=== PATIENT | female | born 1965 | race Caucasian/White ===

== ENCOUNTER 2020-07-14 21:25 | Inpatient (IN) | payer BC ==
[~2020-07-14] VITALS: Ht 157.5 cm; Wt 115.0 kg
[2020-07-14 22:06] LABS: BASOPHILS ABSOLUTE AUTO 0.02 K/mm3 (0.00-0.23); BASOPHILS PERCENT AUTO 0 % (0-2); EOSINOPHILS ABSOLUTE AUTO 0.07 K/mm3 (0.00-0.68); EOSINOPHILS PERCENT AUTO 1 % (0-6); Hemoglobin 14.6 g/dL (11.5-16.0); IMMATURE GRAN ABSOLUTE AUTO 0.04 K/mm3 (0.00-0.10); IMMATURE GRAN PERCENT AUTO 0 % (0-1); LYMPHOCYTES ABSOLUTE AUTO 1.38 K/mm3 (0.84-5.20); LYMPHOCYTES PERCENT AUTO 11 % (21-46); MONOCYTES ABSOLUTE AUTO 0.77 K/mm3 (0.16-1.47); MONOCYTES PERCENT AUTO 6 % (4-13); Mean Corpuscular HGB 28.9 pg (26.0-34.0); Mean Corpuscular Volume 85 fL (80-100); Mean Platelet Volume 11.1 fL (9.1-12.4); NEUTROPHILS ABSOLUTE AUTO 10.16 K/mm3 (1.96-9.15); NEUTROPHILS PERCENT AUTO 82 % (41-73); Platelet Count 267 K/mm3 (150-400); RDW Coefficient Variation 13.8 % (11.7-14.2); Red Blood Cell Count 5.05 M/mm3 (3.80-5.20); White Blood Cell Count 12.44 K/mm3 (4.00-11.30)
[2020-07-14 22:27] LABS: Alanine Aminotransfer (ALT/SGP 262 U/L (12-78); Albumin, Blood 3.7 g/dL (3.4-5.0); Alk Phos 225 U/L (50-136); Anion Gap 7 mmol/L (6-16); Aspartate Aminotrans (AST/SGOT 180 U/L (12-37); Bilirubin, Total 4.6 mg/dL (0.1-1.0); Blood Urea Nitrogen 11 mg/dL (8-24); Bun/Creatinine Ratio 14.5 (12.0-20.0); CO2, Blood 27 mmol/L (21-32); Chloride, Blood 106 mmol/L (98-108); Creatinine, Blood 0.76 mg/dL (0.40-1.00); Globulin, Blood 3.7 g/dL (2.2-4.0); Glomerular Filtration Rate >60 (60-); Glucose, Blood 158 mg/dL (70-99); Potassium, Blood 3.8 mmol/L (3.5-5.5); Sodium, Blood 140 mmol/L (136-145); Total Protein, Blood 7.4 g/dL (6.4-8.2); Troponin I <0.015 ng/mL (0.000-0.040)
[2020-07-15 04:54] LABS: BASOPHILS ABSOLUTE AUTO 0.01 K/mm3 (0.00-0.23); BASOPHILS PERCENT AUTO 0 % (0-2); EOSINOPHILS ABSOLUTE AUTO 0.01 K/mm3 (0.00-0.68); EOSINOPHILS PERCENT AUTO 0 % (0-6); Hematocrit 40.1 % (33.0-51.0); Hemoglobin 13.4 g/dL (11.5-16.0); IMMATURE GRAN ABSOLUTE AUTO 0.03 K/mm3 (0.00-0.10); IMMATURE GRAN PERCENT AUTO 0 % (0-1); LYMPHOCYTES ABSOLUTE AUTO 0.93 K/mm3 (0.84-5.20); LYMPHOCYTES PERCENT AUTO 10 % (21-46); MONOCYTES ABSOLUTE AUTO 0.46 K/mm3 (0.16-1.47); MONOCYTES PERCENT AUTO 5 % (4-13); Mean Corpuscular HGB 28.9 pg (26.0-34.0); Mean Corpuscular HGB Conc 33.4 g/dL (31.5-36.5); Mean Corpuscular Volume 86 fL (80-100); Mean Platelet Volume 10.9 fL (9.1-12.4); NEUTROPHILS ABSOLUTE AUTO 8.34 K/mm3 (1.96-9.15); NEUTROPHILS PERCENT AUTO 85 % (41-73); Platelet Count 235 K/mm3 (150-400); RDW Standard Deviation 44.1 fL (35.1-46.3); Red Blood Cell Count 4.64 M/mm3 (3.80-5.20); White Blood Cell Count 9.78 K/mm3 (4.00-11.30)
[2020-07-15 05:16] LABS: Alanine Aminotransfer (ALT/SGP 253 U/L (12-78); Albumin, Blood 3.4 g/dL (3.4-5.0); Albumin/Globulin Ratio 1.1 (0.8-1.8); Alk Phos 216 U/L (50-136); Anion Gap 4 mmol/L (6-16); Aspartate Aminotrans (AST/SGOT 183 U/L (12-37); Bilirubin, Total 3.4 mg/dL (0.1-1.0); Blood Urea Nitrogen 9 mg/dL (8-24); Bun/Creatinine Ratio 13.5 (12.0-20.0); CO2, Blood 29 mmol/L (21-32); Calcium, Blood 8.8 mg/dL (8.5-10.1); Chloride, Blood 108 mmol/L (98-108); Creatinine, Blood 0.67 mg/dL (0.40-1.00); Globulin, Blood 3.2 g/dL (2.2-4.0); Glomerular Filtration Rate >60 (60-); Glucose, Blood 126 mg/dL (70-99); Potassium, Blood 3.7 mmol/L (3.5-5.5); Sodium, Blood 141 mmol/L (136-145); Total Protein, Blood 6.6 g/dL (6.4-8.2)
--- NOTE | 2020-07-15 06:28 | NUR ---
SHIFT SUMMARY NEW ADMIT TO FLOOR TONIGHT. AOX4. VSS. DENIES NAUSEA @THIS TIME, DOES REPORT SHE WAS NAUSEOUS AT HOME. REPORTS 5/10 PAIN BILAT UPPER QUADRANTS ABD, MEDICATED 2X W/0.5MG DILAUDID & STATES RELIEF. ABD TENDER TO PALPATION. HYPOACTIVE BT. REPORTS FEELING "BLOATED". NS @100ML/HR. REPORTS FEELING WEAK R/T PAIN. WEARS CPAP @HS. DENIES DYSPNEA. E/U RESPIRATIONS SPO2 >90% ON RA. PLAN FOR MRI TODAY. CALL LIGHT IN REACH.
[2020-07-15 11:46] LABS: Source, Urine Clean Catch
[2020-07-15 12:37] LABS: Blood, Urine Neg (Neg); Glucose Qualitative, Urine Neg (Neg); Ketones, Urine 1+ (Neg); Leukocyte Esterase, Urine 3+ (Neg); Nitrite, Urine Neg (Neg); Protein, Urine 1+ (Neg); Specific Gravity, Urine 1.025 (1.003-1.022); Urobilinogen, Urine 2+ (Normal)
[2020-07-15 12:47] LABS: Appearance, Urine Hazy (Clear); Bilirubin, Urine 2+ (Neg); Color, Urine Amber (P-Yellow)
[2020-07-15 12:48] LABS: White Blood Cells, Urine 25-50 /hpf (0-5)
[2020-07-15 12:49] LABS: Amorphous Light (0-Heavy); Bacteria Few /hpf; Squamous Epithelial Cells Few /hpf (Few)
--- NOTE | 2020-07-15 17:15 | NUR ---
SHIFT SUMMARY PT TX'D FROM RM 351 THIS AFTERNOON. ADMITTED FOR PANCREATITIS R/T GALL STONES. CL DIET UNTIL NPO AT GA, PER DR RMOERO. PT TO HAVE GB SX AROUND NOON TOMORROW. IVF'S INFUSING PER EMAR. PAIN AND NAUSES MEDICATION GIVEN PER PT REQUEST. SBA TO BTM. A&O, ABLE TO MAKE NEEDS KNOWN. CALL LT IN REACH.
--- NOTE | 2020-07-16 05:52 | NUR ---
SHIFT SUMMARY PATIENT ALERT AND ORIENTED. HAD SOME TROUBLE MAINTAINING HER O2 SATS, 2 LITERS SUPPLIMENTAL OXYGEN GIVEN TO ASSIST. PATIENT MEDICATED FOR PAIN NEEDED PER EMAR. IV PATENT AND INFUSING WITH NORMAL SALINE AT 100 ML/HR. BED IN LOWEST POSITION WITH WHEELS LOCKED. CALL LIGHT WITHIN REACH. REPORT GIVEN TO ONCOMING RN.
[2020-07-16 05:53] LABS: BASOPHILS ABSOLUTE AUTO 0.02 K/mm3 (0.00-0.23); BASOPHILS PERCENT AUTO 0 % (0-2); EOSINOPHILS ABSOLUTE AUTO 0.03 K/mm3 (0.00-0.68); EOSINOPHILS PERCENT AUTO 0 % (0-6); Hematocrit 38.3 % (33.0-51.0); Hemoglobin 12.5 g/dL (11.5-16.0); IMMATURE GRAN ABSOLUTE AUTO 0.02 K/mm3 (0.00-0.10); IMMATURE GRAN PERCENT AUTO 0 % (0-1); LYMPHOCYTES ABSOLUTE AUTO 1.25 K/mm3 (0.84-5.20); LYMPHOCYTES PERCENT AUTO 12 % (21-46); MONOCYTES ABSOLUTE AUTO 0.64 K/mm3 (0.16-1.47); MONOCYTES PERCENT AUTO 6 % (4-13); Mean Corpuscular HGB 28.5 pg (26.0-34.0); Mean Corpuscular HGB Conc 32.6 g/dL (31.5-36.5); Mean Corpuscular Volume 87 fL (80-100); Mean Platelet Volume 10.6 fL (9.1-12.4); NEUTROPHILS ABSOLUTE AUTO 8.23 K/mm3 (1.96-9.15); NEUTROPHILS PERCENT AUTO 81 % (41-73); Platelet Count 192 K/mm3 (150-400); RDW Coefficient Variation 14.1 % (11.7-14.2); RDW Standard Deviation 45.4 fL (35.1-46.3); Red Blood Cell Count 4.38 M/mm3 (3.80-5.20); White Blood Cell Count 10.19 K/mm3 (4.00-11.30)
[2020-07-16 06:13] LABS: Alanine Aminotransfer (ALT/SGP 181 U/L (12-78); Albumin/Globulin Ratio 0.8 (0.8-1.8); Alk Phos 215 U/L (50-136); Anion Gap 6 mmol/L (6-16); Aspartate Aminotrans (AST/SGOT 63 U/L (12-37); Bilirubin, Total 1.4 mg/dL (0.1-1.0); Blood Urea Nitrogen 6 mg/dL (8-24); Bun/Creatinine Ratio 8.6 (12.0-20.0); CO2, Blood 27 mmol/L (21-32); Calcium, Blood 8.3 mg/dL (8.5-10.1); Chloride, Blood 107 mmol/L (98-108); Globulin, Blood 3.6 g/dL (2.2-4.0); Glomerular Filtration Rate >60 (60-); Glucose, Blood 110 mg/dL (70-99); Phosphorus, Blood 2.6 mg/dL (2.5-4.9); Potassium, Blood 3.4 mmol/L (3.5-5.5); Sodium, Blood 140 mmol/L (136-145); Total Protein, Blood 6.6 g/dL (6.4-8.2)
--- NOTE | 2020-07-16 11:29 | NUR ---
PATIENT LEFT THIS UNIT FOR DAY SURGERY
--- NOTE | 2020-07-16 13:04 | NUR ---
INTO [facility] FOR SECOND TIME. VSS ADMISSION TO UNIT STARTED. History, Chart, Medications and Allergies reviewed before start of procedure.Patient confirms NPO status and agrees with scheduled surgery.
--- NOTE | 2020-07-16 14:49 | NUR ---
assumed care of andrzej after recieveing report from marcia eid. s
--- NOTE | 2020-07-16 18:14 | NUR ---
SHIFT SUMMARY PT ARRIVED TO THE ROOM FROM PACU AT APPROXIMATELY 1515. PT WAS ALERT AND ORIENTED AT TIME OF ARRIVAL TO THE UNIT. SHE HAS TOLERATED CLEAR LIQUIDS. PT HAS BEEN ABLE TO AMBULATE WELL VOID POST-OP. SHE IS NOW TOLERATING A REGULAR DIET. PAIN MANAGED WITH FENTANYL; PO PAIN MEDICATION HAS BEEN REQUESTED. VSS. WILL MONITOR UNTIL REPORT TO ONCOMING RN.
--- NOTE | 2020-07-17 04:38 | NUR ---
SHIFT SUMMARY POD 1 LAP APPY [id number], VSS. DENIES NAUSEA DURING SHIFT, MEDICATED FOR PAIN PER EMAR. PT UP AND AMBULATING IN ROOM. NO WEAKNESS NOTED. VOIDING IN COMMODE. TOLERATING PO WELL. REPORTS PASSING SOME GAS. PT SLEEPING DURING MOST OF NIGHT WITH CPAP ON. PLAN TO CONTINUE TO ADVANCE DIET ORDERED AND MONITOR FOR NAUSEA AND PAIN.
[2020-07-17 09:14] LABS: Triglycerides 97 mg/dL (30-160)
[2020-07-17] MEDS ORDERED: OXYC5 PO (11:29)
--- NOTE | 2020-07-17 13:47 | NUR ---
1334 discharged to home pt ambulating, passing flatus, carlos a po food and fluids and reports pain is well controlled
== END 2020-07-17 13:34 | disposition home or self-care (01) | DRG 418 ==
LOC: ER 21:25 → MEDS 23:25 → SURS 07-16 14:20
PROVIDERS: Emergency Medicine; Internal Medicine; Surgery; ADMIT Internal Medicine
PROC: BF13YZZ Fluoroscopy of Gallbladder and Bile Ducts using Other Contrast (ICD-10-PCS; 2020-07-16)
PROC: 0FT44ZZ Resection of Gallbladder, Percutaneous Endoscopic Approach (ICD-10-PCS; principal; 2020-07-16 13:30)
DX: K85.10 Biliary acute pancreatitis without necrosis or infection (principal); Z68.41 Body mass index [BMI] 40.0-44.9, adult; Z20.828 Contact with and (suspected) exposure to other viral communicable diseases; E66.9 Obesity, unspecified; G47.33 Obstructive sleep apnea (adult) (pediatric)
CPT/HCPCS: 36415; 74181; 74300; 76705; 80053; 81001; 83690; 84100; 84478; 84484; 85025; 87086; 88304; 93005; 93010; 94762; 96361; 96374; 96375; 99285-25; A9270; A9270-GY; C1729; J0330; J0690; J1170; J1644; J1885; J2250; J2405; J2704; J2710; J3010; J7030; J7120; U0002

== ENCOUNTER → 2021-12-24 | Outpatient (CLI) | payer BC ==
[~2021-12-24] MED LIST: OXYC5 PO
== END ==
LOC: LAB SHORT 18:27
DX: N39.0 Urinary tract infection, site not specified (principal)
CPT/HCPCS: 87086

== ENCOUNTER → 2022-01-23 | Outpatient (CLI) | payer BC ==
[2022-01-23 17:03] LABS: BASOPHILS ABSOLUTE AUTO 0.02 K/mm3 (0.00-0.23); BASOPHILS PERCENT AUTO 0 % (0-2); EOSINOPHILS ABSOLUTE AUTO 0.06 K/mm3 (0.00-0.68); EOSINOPHILS PERCENT AUTO 1 % (0-6); Hematocrit 40.5 % (33.0-51.0); Hemoglobin 13.9 g/dL (11.5-16.0); IMMATURE GRAN ABSOLUTE AUTO 0.03 K/mm3 (0.00-0.10); IMMATURE GRAN PERCENT AUTO 0 % (0-1); LYMPHOCYTES ABSOLUTE AUTO 1.91 K/mm3 (0.84-5.20); LYMPHOCYTES PERCENT AUTO 21 % (21-46); MONOCYTES ABSOLUTE AUTO 0.67 K/mm3 (0.16-1.47); MONOCYTES PERCENT AUTO 7 % (4-13); Mean Corpuscular HGB 29.6 pg (26.0-34.0); Mean Corpuscular HGB Conc 34.3 g/dL (31.5-36.5); Mean Corpuscular Volume 86 fL (80-100); Mean Platelet Volume 11.1 fL (9.1-12.4); NEUTROPHILS ABSOLUTE AUTO 6.58 K/mm3 (1.96-9.15); NEUTROPHILS PERCENT AUTO 71 % (41-73); Platelet Count 235 K/mm3 (150-400); RDW Coefficient Variation 14.1 % (11.7-14.2); RDW Standard Deviation 44.5 fL (35.1-46.3); Red Blood Cell Count 4.69 M/mm3 (3.80-5.20); White Blood Cell Count 9.27 K/mm3 (4.00-11.30)
[2022-01-23 17:18] LABS: Alanine Aminotransfer (ALT/SGP 23 U/L (12-78); Albumin, Blood 3.8 g/dL (3.4-5.0); Albumin/Globulin Ratio 1.3 (0.8-1.8); Alk Phos 91 U/L (40-126); Anion Gap 12 mmol/L (6-16); Aspartate Aminotrans (AST/SGOT 12 U/L (12-37); Bilirubin, Total 0.6 mg/dL (0.1-1.0); Blood Urea Nitrogen 9 mg/dL (8-24); Bun/Creatinine Ratio 12.2 (12.0-20.0); CO2, Blood 27 mmol/L (21-32); Calcium, Blood 8.7 mg/dL (8.5-10.1); Chloride, Blood 104 mmol/L (98-108); Creatinine, Blood 0.74 mg/dL (0.40-1.00); Glomerular Filtration Rate >60 (60-); Glucose, Blood 119 mg/dL (70-99); Potassium, Blood 3.9 mmol/L (3.5-5.5); Sodium, Blood 143 mmol/L (136-145); Total Protein, Blood 6.8 g/dL (6.4-8.2)
== END ==
LOC: LAB 16:55 → LAB SHORT 16:55
PROVIDERS: Physician Assistant Surgical
DX: R10.12 Left upper quadrant pain (principal)
CPT/HCPCS: 80053; 83690; 84484; 85025

== ENCOUNTER → 2022-04-13 | Outpatient (CLI) | payer BC | END | disposition home or self-care (01) | LOC: LAB 08:42 → LAB SHORT 08:42 | DX: N84.1 Polyp of cervix uteri (principal) | CPT/HCPCS: 88305 ==

== ENCOUNTER 2022-08-24 08:48 | Day surgery (SDC) | payer BC ==
[~2022-08-24] VITALS: Ht 157.5 cm; Wt 121.0 kg
--- NOTE | 2022-08-24 10:07 | NUR ---
08/24/22 Ivonne Bauer NO INTRAOP ANTIBIOTICS ORDERED PER SURGEON
--- NOTE | 2022-08-24 11:43 | NUR ---
MEDICATED FOR C/O OF NAUSEA. NO EMESIS. PATIENT HAS BEEN DRINKING JUICE AND EATING CRACKERS. DENIES PAIN. NO OTHER C/O.
--- NOTE | 2022-08-24 11:51 | NUR ---
Discharge instructions reviewed with patient. Patient verbalizes understanding. Copy given to patient to take home. Patient denies nausea post anti-emetic. Report given to Stefano Bhat RN.
--- NOTE | 2022-08-24 12:21 | NUR ---
PATIENT WAS DISCHARGED HOME WITH HER DAUGHTER. THE PATIENT'S TONI PAD SHOWED LITTLE BLEEDING. Patient up to Ambulate independently. Gait steady. Discharge instructions reviewed with patient. Patient verbalizes understanding. Copy given to patient to take home. Patient States Post-Procedure ride home has been arranged. Discharged via wheelchair to private car for ride home.
== END 2022-08-24 12:27 | disposition home or self-care (01) ==
LOC: ORSCMMR 08:48 → ORD 10:00 → ORSCMMR 12:27
PROVIDERS: Obstetrics & Gynecology
PROC: 0UB98ZX Excision of Uterus, Via Natural or Artificial Opening Endoscopic, Diagnostic (ICD-10-PCS; principal; 2022-08-24 10:00)
PROC: 0UDB8ZX Extraction of Endometrium, Via Natural or Artificial Opening Endoscopic, Diagnostic (ICD-10-PCS; principal; 2022-08-24 10:00)
DX: N84.0 Polyp of corpus uteri (principal); N88.2 Stricture and stenosis of cervix uteri; G47.33 Obstructive sleep apnea (adult) (pediatric); J45.909 Unspecified asthma, uncomplicated; Z86.73 Personal history of transient ischemic attack (TIA), and cerebral infarction without residual deficits; E66.01 Morbid (severe) obesity due to excess calories; Z68.42 Body mass index [BMI] 45.0-49.9, adult
CPT/HCPCS: 88305; J1100; J1885; J2250; J2405; J2550; J2704; J3010; J7120

== ENCOUNTER 2023-04-27 13:50 | Day surgery (SDC) | payer BC ==
[~2023-04-27] VITALS: Ht 157.5 cm; Wt 118.5 kg
[2023-04-27 16:32] VITALS: BP 103/65
== END 2023-04-27 16:23 | disposition home or self-care (01) ==
LOC: ORSCSDS 13:50
PROVIDERS: Internal Medicine Gastroenterology
PROC: 0DBK8ZX Excision of Ascending Colon, Via Natural or Artificial Opening Endoscopic, Diagnostic (ICD-10-PCS; principal; 2023-04-27 15:00)
PROC: 0DBP8ZX Excision of Rectum, Via Natural or Artificial Opening Endoscopic, Diagnostic (ICD-10-PCS; principal; 2023-04-27 15:00)
DX: Z12.11 Encounter for screening for malignant neoplasm of colon (principal); D12.2 Benign neoplasm of ascending colon; K62.1 Rectal polyp; K57.30 Diverticulosis of large intestine without perforation or abscess without bleeding; K64.8 Other hemorrhoids; E11.9 Type 2 diabetes mellitus without complications; G47.33 Obstructive sleep apnea (adult) (pediatric); Z86.73 Personal history of transient ischemic attack (TIA), and cerebral infarction without residual deficits; Z79.84 Long term (current) use of oral hypoglycemic drugs
CPT/HCPCS: 82947; J2704; J7120

== ENCOUNTER 2023-05-04 12:45 | Day surgery (SDC) | payer BC ==
[~2023-05-04] VITALS: Ht 157.5 cm; Wt 118.4 kg
[2023-05-04 14:49] VITALS: BP 139/86
--- NOTE | 2023-05-04 15:41 | NUR ---
05/04/23 1541 Arnoldo Mccarty iv removed intact. site wnl.
== END 2023-05-04 15:38 | disposition home or self-care (01) ==
LOC: ORSCSDS 12:45
PROVIDERS: Obstetrics & Gynecology
PROC: 0UDB8ZZ Extraction of Endometrium, Via Natural or Artificial Opening Endoscopic (ICD-10-PCS; principal; 2023-05-04 14:00)
DX: N95.0 Postmenopausal bleeding (principal); N85.00 Endometrial hyperplasia, unspecified; R93.89 Abnormal findings on diagnostic imaging of other specified body structures; J45.909 Unspecified asthma, uncomplicated; G47.33 Obstructive sleep apnea (adult) (pediatric); E66.01 Morbid (severe) obesity due to excess calories; Z68.42 Body mass index [BMI] 45.0-49.9, adult
CPT/HCPCS: 82947; 88305; A9270; J1100; J2250; J2405; J2704; J3010; J7120

== ENCOUNTER 2023-08-21 06:00 | Day surgery (SDC) | payer BC ==
[2023-08-21] VITALS (14 sets, daily range): BP systolic 101–157; BP diastolic 52–86
[~2023-08-21] VITALS: Ht 160 cm; Wt 113.3 kg
[~2023-08-21 06:00] MED LIST changes: +METF500 PO
--- NOTE | 2023-08-21 06:32 | NUR ---
PT TO DAY SURGERY FOR ROBOTIC HYSTERECTOMY. CHART AND HX REVIEWED. PLAN OF CARE DISCUSSED WITH PT. PT HAS RIDE HOME. ALL QUESTIONS ANSWERED.
--- NOTE | 2023-08-21 08:31 | NUR ---
08/21/23 0831 Kassidy Wilson PREVIOUS WOUND NOTED TO LEFT HAND. SURGEON AND ANESTHESIA AWARE
--- NOTE | 2023-08-21 11:51 | NUR ---
PT ARRIVED TO UNIT AT APROX 1130. LAP SITES X'S 4 W/DERMABOND C/D/I. PT DENIES PAIN. TOLERATING SM SIPS CLEAR LIQUIDS. TONI PAD W/SCANT AMT BLOOD PRESENT
--- NOTE | 2023-08-21 17:25 | NUR ---
SHIFT SUMMARY PT POD 0 VALERIA LAVH. LAP SITES X'S 4 C/D/I. PT VOIDED X'S 2 W/O DIFFICULTY, ORANGE IN COLOR R/T PYRIDIUM PRE-OP. PT TOLERATING REGULAR DIET FOR DINNER, NO N/V. PAIN TOLERABLE W/PO MEDICATION (SEE EMAR). AMBULATED SBA TO BATHROOM. PT EXPRESSED CONCERN W/DC TONIGHT DUE TO STILL FEELING "OUT OF IT".
[2023-08-22 00:58] VITALS: BP 118/66
[2023-08-22 04:23] VITALS: BP 113/66
--- NOTE | 2023-08-22 04:31 | NUR ---
SHIFT SUMMARY S/P LAVH. PT RESTED WELL T/O NOC. VSS. LAP SITES TO ABD REMAIN CDI. SCANT VAGINAL BLEEDING ON TONI PAD. PT AUBRIE REG DIET. REPORTS BURPING, BUT NO FLATUS YET. TYLENOL/IBUPROFEN AND 1 ROXICODONE FOR PAIN MANAGEMENT. PT INDEP TO RESTROOM AND VOIDING SPONTANEOUSLY. PT EXPECTED TO DISCHARGE TODAY. PT USES CALL LIGHT APPROPRIATELY.
[2023-08-22 05:01] LABS: BASOPHILS ABSOLUTE AUTO 0.01 K/mm3 (0.00-0.23); BASOPHILS PERCENT AUTO 0 % (0-2); EOSINOPHILS PERCENT AUTO 0 % (0-6); Hematocrit 32.2 % (33.0-51.0); Hemoglobin 10.9 g/dL (11.5-16.0); IMMATURE GRAN ABSOLUTE AUTO 0.04 K/mm3 (0.00-0.10); IMMATURE GRAN PERCENT AUTO 0 % (0-1); LYMPHOCYTES ABSOLUTE AUTO 1.46 K/mm3 (0.84-5.20); LYMPHOCYTES PERCENT AUTO 15 % (21-46); MONOCYTES ABSOLUTE AUTO 0.77 K/mm3 (0.16-1.47); MONOCYTES PERCENT AUTO 8 % (4-13); Mean Corpuscular HGB 29.6 pg (26.0-34.0); Mean Corpuscular HGB Conc 33.9 g/dL (31.5-36.5); Mean Corpuscular Volume 88 fL (80-100); Mean Platelet Volume 11.6 fL (9.1-12.4); NEUTROPHILS ABSOLUTE AUTO 7.27 K/mm3 (1.96-9.15); NEUTROPHILS PERCENT AUTO 76 % (41-73); Platelet Count 241 K/mm3 (150-400); RDW Coefficient Variation 13.5 % (11.7-14.2); RDW Standard Deviation 43.4 fL (35.1-46.3); Red Blood Cell Count 3.68 M/mm3 (3.80-5.20); White Blood Cell Count 9.55 K/mm3 (4.00-11.30)
[2023-08-22 07:46] VITALS: BP 109/54
[2023-08-22] MEDS ORDERED: Acetaminophen650 M1 PO (09:32)
[2023-08-22] MEDS ORDERED: LACT PO (09:33)
[2023-08-22] MEDS ORDERED: Nicoderm Cq1 EAC1 TOP (09:33)
== END 2023-08-22 10:55 | disposition home or self-care (01) ==
LOC: ORSCMMR 06:00 → ORD 07:30 → SURS 11:01 → ORSCMMR 11:02 → SURS 08-22 10:55 → ORSCMMR 08-22 10:55
PROVIDERS: Obstetrics & Gynecology
PROC: 0UT9FZZ Resection of Uterus, Via Natural or Artificial Opening With Percutaneous Endoscopic Assistance (ICD-10-PCS; principal; 2023-08-22)
PROC: 0UT1FZZ Resection of Left Ovary, Via Natural or Artificial Opening With Percutaneous Endoscopic Assistance (ICD-10-PCS; principal; 2023-08-22)
PROC: 0UT7FZZ Resection of Bilateral Fallopian Tubes, Via Natural or Artificial Opening With Percutaneous Endoscopic Assistance (ICD-10-PCS; principal; 2023-08-22)
DX: N95.0 Postmenopausal bleeding (principal); N85.01 Benign endometrial hyperplasia; N72 Inflammatory disease of cervix uteri; D25.9 Leiomyoma of uterus, unspecified; N83.8 Other noninflammatory disorders of ovary, fallopian tube and broad ligament; K66.0 Peritoneal adhesions (postprocedural) (postinfection); N83.292 Other ovarian cyst, left side; I10 Essential (primary) hypertension; G47.33 Obstructive sleep apnea (adult) (pediatric); J45.909 Unspecified asthma, uncomplicated; Z86.73 Personal history of transient ischemic attack (TIA), and cerebral infarction without residual deficits; R73.03 Prediabetes; E66.01 Morbid (severe) obesity due to excess calories; Z68.41 Body mass index [BMI] 40.0-44.9, adult; Z79.899 Other long term (current) drug therapy; Z79.84 Long term (current) use of oral hypoglycemic drugs
CPT/HCPCS: 36415; 82947; 85025; 86850; 86900; 86901; 88307; 94762; A9270; J0690; J1100; J1650; J1885; J2250; J2405; J2704; J2765; J3010; J7120

== ENCOUNTER → 2023-10-02 | Outpatient (CLI) | payer BC ==
[~2023-10-02] MED LIST changes: +Acetaminophen650 M1 PO; +LACT PO; +Nicoderm Cq1 EAC1 TOP
[2023-10-03 11:18] LABS: Candida species (DNA Probe) Negative (NEGATIVE); G. vaginalis (DNA Probe) Positive (NEGATIVE); T. vaginalis (DNA Probe) Negative (NEGATIVE)
== END ==
LOC: LAB SHORT 17:06 → LAB 17:06
PROVIDERS: Obstetrics & Gynecology
DX: N89.8 Other specified noninflammatory disorders of vagina (principal)
CPT/HCPCS: 87480; 87510; 87660

== ENCOUNTER 2024-09-19 21:29 | Observation (INO) | payer OTHER ==
[~2024-09-19] VITALS: Ht 162.6 cm; Wt 110.0 kg
[2024-09-19 22:37] LABS: BASOPHILS ABSOLUTE AUTO 0.03 K/mm3 (0.00-0.23); BASOPHILS PERCENT AUTO 0 % (0-2); EOSINOPHILS ABSOLUTE AUTO 0.12 K/mm3 (0.00-0.68); EOSINOPHILS PERCENT AUTO 2 % (0-6); Hematocrit 37.5 % (33.0-51.0); Hemoglobin 12.7 g/dL (11.5-16.0); IMMATURE GRAN ABSOLUTE AUTO 0.02 K/mm3 (0.00-0.10); IMMATURE GRAN PERCENT AUTO 0 % (0-1); LYMPHOCYTES ABSOLUTE AUTO 2.37 K/mm3 (0.84-5.20); LYMPHOCYTES PERCENT AUTO 29 % (21-46); MONOCYTES ABSOLUTE AUTO 0.62 K/mm3 (0.16-1.47); MONOCYTES PERCENT AUTO 8 % (4-13); Mean Corpuscular HGB 29.4 pg (26.0-34.0); Mean Corpuscular HGB Conc 33.9 g/dL (31.5-36.5); Mean Corpuscular Volume 87 fL (80-100); Mean Platelet Volume 10.5 fL (9.1-12.4); NEUTROPHILS ABSOLUTE AUTO 4.98 K/mm3 (1.96-9.15); NEUTROPHILS PERCENT AUTO 61 % (41-73); Platelet Count 229 K/mm3 (150-400); RDW Coefficient Variation 13.5 % (11.7-14.2); RDW Standard Deviation 42.5 fL (35.1-46.3); Red Blood Cell Count 4.32 M/mm3 (3.80-5.20); White Blood Cell Count 8.14 K/mm3 (4.00-11.30)
[2024-09-19 22:57] LABS: Albumin, Blood 3.5 g/dL (3.4-5.0); Albumin/Globulin Ratio 1.1 (0.8-1.8); Bilirubin, Total 0.3 mg/dL (0.1-1.0); Bun/Creatinine Ratio 22.2 (12.0-20.0); Calcium, Blood 8.8 mg/dL (8.5-10.1); Creatinine, Blood 0.9 mg/dL (0.40-1.00); Globulin, Blood 3.3 g/dL (2.2-4.0); Potassium, Blood 3.7 mmol/L (3.5-5.5); Total Protein, Blood 6.8 g/dL (6.4-8.2)
[2024-09-20 00:07] LABS: C-REACTIVE PROTEIN, EXT RANGE 1.44 mg/dL (0.000-0.300)
[2024-09-20] MEDS ORDERED: Acetaminophen 325 MG TABLET PO ONE (00:30)
[2024-09-20] MEDS ORDERED: FLU VACC TS2024-25(6MOS UP)/PF 45 MCG/0.5 ML SYRINGE IM SCH (02:30)
[2024-09-20] MEDS ORDERED: Clopidogrel Bisulfate 300 MG Cap PO ONE (03:00)
[2024-09-20] MEDS ORDERED: Aspirin 81 MG Chew PO ONE (03:00)
[2024-09-20] MEDS ORDERED: Aspirin 81 MG Chew ONE (03:05)
[2024-09-20 08:15] VITALS: BP 131/77
--- NOTE | 2024-09-20 08:57 | NUR ---
CALLED DR RAMIREZ OFFICE FOR CONSULT- RECIEVED A CALL BACK FROM DR ISLAS. SHE WOULD LIKE TO SEE THE PT IN HER OFFICE TODAY, MRI PLANNED FOR [address] ISLAS STATES THE HOSPITAL DOES NOT HAVE THE EQUIPMENT NEEDED FOR HER TO DETERMINE IF THE PT HAS SOMETHING LIKE A RETINAL ARTERY OCCLUSION, SHE CAN BETTER ASSESS THE PT IN HER CLINIC WITH HER AVAILABLE EQUIPMENT. SHE WOULD LIKE TO SEE THE PT, IF IT CAN BE ARRANGED AFTER THE MRI, AROUND 1300 IN HER OFFICE. WILL CALL DR GODINEZ AND SPEAK TO HIM.
[2024-09-20] MEDS ORDERED: Enoxaparin 40 MG/0.4 ML SYR SC SCH (09:00)
[2024-09-20] MEDS ORDERED: Atorvastatin 40 MG Tab PO SCH (09:00)
[2024-09-20 11:11] LABS: BASOPHILS ABSOLUTE AUTO 0.02 K/mm3 (0.00-0.23); BASOPHILS PERCENT AUTO 0 % (0-2); EOSINOPHILS ABSOLUTE AUTO 0.06 K/mm3 (0.00-0.68); EOSINOPHILS PERCENT AUTO 1 % (0-6); Hematocrit 40.2 % (33.0-51.0); Hemoglobin 13.7 g/dL (11.5-16.0); IMMATURE GRAN ABSOLUTE AUTO 0.02 K/mm3 (0.00-0.10); IMMATURE GRAN PERCENT AUTO 0 % (0-1); LYMPHOCYTES PERCENT AUTO 37 % (21-46); MONOCYTES ABSOLUTE AUTO 0.44 K/mm3 (0.16-1.47); MONOCYTES PERCENT AUTO 7 % (4-13); Mean Corpuscular HGB 29.7 pg (26.0-34.0); Mean Corpuscular HGB Conc 34.1 g/dL (31.5-36.5); Mean Corpuscular Volume 87 fL (80-100); Mean Platelet Volume 10.9 fL (9.1-12.4); NEUTROPHILS ABSOLUTE AUTO 3.47 K/mm3 (1.96-9.15); NEUTROPHILS PERCENT AUTO 55 % (41-73); Platelet Count 244 K/mm3 (150-400); RDW Coefficient Variation 13.5 % (11.7-14.2); Red Blood Cell Count 4.62 M/mm3 (3.80-5.20); White Blood Cell Count 6.31 K/mm3 (4.00-11.30)
--- NOTE | 2024-09-20 11:32 | NUR ---
ADMIT NOTE- PT ADMITTED THROUGH THE ED FOR L EYE VISION LOSS. CONSULT CALLED TO DR ISLAS WHEN THE PT ARRIVED ON MED FLOOR. DR ISLAS WOULD LIKE TO SEE THE PT TODAY IN HER OFFICE ONCE STROKE RULE OUT IS COMPLETED. SPOIKE TO DR GODINEZ HE IS AWARE. CALLED MRI AND EXPLAINED THE SITUATION, MRI COMPLETED AT THAT TIME [facility] READING IS BACK. ECHO WAS IN THE ROOM WHEN THEW PT WENT TO MRI AND WILL COME BACK FOR THE ECHO. CALLED ECHO TO LET THEM KNOW THE PT IS BACK FROM MRI, ECHO TECHS ARE ALL UNAVAILABLE AT THIS TIME. CALLED DR GODINEZ TO NOTIFY HIM THE MRI WAS COMPLETED AND THE RESULTS ARE IN. PER THE REQUEST OF DR ISLAS THE PT FACE SHEET AND CHART NOTES WERE FAXED OVER. THEY ALSO REQUESTED IMAING, HARD COPY DISC BEING MADE AT THIS TIME. PT WILL HAVE FAMILY OR FRIEND TRANSPORT HER TO DR RAMIREZ OFFICE AT THE TIME OF HER DISCHARGE.
[2024-09-20] MEDS ORDERED: ATOR40TA PO (11:49)
[2024-09-20] MEDS ORDERED: CLOP75 PO (11:49)
[2024-09-20 11:53] LABS: Albumin, Blood 3.7 g/dL (3.4-5.0); Albumin/Globulin Ratio 1.1 (0.8-1.8); Bilirubin, Total 0.7 mg/dL (0.1-1.0); Bun/Creatinine Ratio 22.1 (12.0-20.0); Calcium, Blood 9.6 mg/dL (8.5-10.1); Creatinine, Blood 0.77 mg/dL (0.40-1.00); Globulin, Blood 3.5 g/dL (2.2-4.0); Potassium, Blood 3.7 mmol/L (3.5-5.5); Total Protein, Blood 7.2 g/dL (6.4-8.2)
--- NOTE | 2024-09-20 12:44 | NUR ---
DISCHARGE NOTE- PT WAS GIVEN VERBAL AND WRITTEN DISCHARGE INSTRUCTIONS. HER SPOUSE ARRIVED AND PT WAS ESCORTED OUT VIA WC BY THE [facility], AFTER ECHO WAS COMPLETED, TELE DC'D AND PIV DC'D. NO S&S OF DISTRESS NOTED. CALLED DR RAMIREZ OFFICE AFTER PT LEFT. THEY HAD NOT RECIEVED PART OF THE INFO THEY REQUESTED. REFAXING FACE SHEET AND CHART NOTES NOW.
[2024-09-21] MEDS ORDERED: Clopidogrel Bisulfate 75 MG Tab PO SCH (09:00)
== END 2024-09-20 12:31 | disposition home or self-care (01) ==
LOC: ER 21:29 → ERHOLD 21:31 → ER 09-20 02:27 → MEDS 09-20 02:27 → ERHOLD 09-20 08:01 → ENPENDDIS 09-20 11:48 → MEDS 09-20 12:31
PROVIDERS: Student in an Organized Health Care Education/Training Program; ADMIT Internal Medicine
DX: G43.109 Migraine with aura, not intractable, without status migrainosus (principal); H53.131 Sudden visual loss, right eye; Z68.41 Body mass index [BMI] 40.0-44.9, adult; G47.33 Obstructive sleep apnea (adult) (pediatric); E11.9 Type 2 diabetes mellitus without complications; H54.7 Unspecified visual loss; E66.9 Obesity, unspecified; Z88.6 Allergy status to analgesic agent; Z86.73 Personal history of transient ischemic attack (TIA), and cerebral infarction without residual deficits; Z90.49 Acquired absence of other specified parts of digestive tract; Z90.710 Acquired absence of both cervix and uterus; Z98.890 Other specified postprocedural states; Z91.048 Other nonmedicinal substance allergy status; Z79.84 Long term (current) use of oral hypoglycemic drugs; Z79.899 Other long term (current) drug therapy; H47.12 Papilledema associated with decreased ocular pressure
CPT/HCPCS: 36415; 70450; 70496; 70498; 70551; 80053; 85025; 85651; 86039; 86140; 86592; 86611; 86618; 92523; 93005; 93010; 93306; 99285-25; A9270; G0378; Q9967

== ENCOUNTER 2024-09-27 10:00 | Day surgery (SDC) | payer OTHER ==
[~2024-09-27 10:00] MED LIST changes: +ATOR40TA PO; +CLOP75 PO
[2024-09-27 16:15] VITALS: BP 135/71
--- NOTE | 2024-09-27 16:55 | NUR ---
IV ACCESS DISCUSSED DAILY IV STARTS X3 DAYS FOR HER INFUSIONS VS A ONE TIME IV PLACEMENT AND KEEPING IT FOR THE THREE DAYS. PT AGREED TO HAVE ONE TIME IV PLACEMENT WHICH WILL BE TAKEN OUT ON DAY 3 Monday09/29/24.
== END 2024-09-27 16:51 | disposition home or self-care (01) ==
LOC: ATC 10:00
DX: M31.6 Other giant cell arteritis (principal); H47.012 Ischemic optic neuropathy, left eye; E11.9 Type 2 diabetes mellitus without complications; Z88.8 Allergy status to other drugs, medicaments and biological substances
CPT/HCPCS: 96365; 96366; J2919

== ENCOUNTER 2024-09-28 02:20 | Day surgery (SDC) | payer OTHER ==
[2024-09-28 14:06] VITALS: BP 145/65
== END 2024-09-28 14:32 | disposition home or self-care (01) ==
LOC: ATC 02:20
DX: M31.6 Other giant cell arteritis (principal); H47.012 Ischemic optic neuropathy, left eye; E11.9 Type 2 diabetes mellitus without complications
CPT/HCPCS: 96365; J2919

== ENCOUNTER 2024-09-29 13:33 | Day surgery (SDC) | payer OTHER ==
[2024-09-29 13:58] VITALS: BP 157/72
== END 2024-09-29 14:30 | disposition home or self-care (01) ==
LOC: ATC 13:33
DX: M31.6 Other giant cell arteritis (principal); H47.012 Ischemic optic neuropathy, left eye; E11.9 Type 2 diabetes mellitus without complications
CPT/HCPCS: 96365; J2919